=== PATIENT | female | born 1955 | race Caucasian/White ===

== ENCOUNTER 2017-05-12 08:51 | Day surgery (SDC) | payer MEDICARE, MEDICAID ==
[2017-05-09 14:48] VITALS: BMI 38.7
--- NOTE | 2017-05-11 23:53 | HP ---
HISTORY OF PRESENT ILLNESS: Ms. Sanchez is a 61-year-old woman who is known to us for a lumbar fusio n roughly two years ago who presents now for symptoms in her right hand that appeared carpal tunnel s yndrome in nature. She complains of pain, numbness and some weakness and clumsiness of the right mcmahan d. She is actually discussed this with Dr. Crockett in the past, but now has reached to a point where s he would like to pursue surgical treatment if possible. PAST MEDICAL HISTORY: Significant for back pain, neck pain, anemia, asthma, thyroid disease, diabete s, gastroesophageal reflux disease, and IBS. ALLERGIES: CIPRO, KEFLEX, BACTRIM, HYDROCODONE and MUCINEX. PAST SURGICAL HISTORY: Cholecystectomy, ACDF, lumbar fusion. CURRENT MEDICATIONS: Levothyroxine, oxybutynin, pravastatin, metformin, methocarbamol, Meloxicam, om eprazole. PHYSICAL EXAMINATION: NEUROLOGIC: The patient is alert and oriented x3. Positive Tinel's at the median nerve on the right hand. She has some sensory disturbance in the first, second, and third digits of the right hand and there are some clumsiness with fine motor movement. ASSESSMENT: Carpal tunnel syndrome of the right hand. PLAN: Dr. Crockett met with the patient, reviewed imaging and advocated for right carpal tunnel release . He explained to the patient the risks, benefits, and alternatives of the procedure. The patient e xpressed understanding and would like to move forward with surgery as discussed. I do believe the pa coy is mentally competent and capable of making medical decisions for herself and we will move forw molly with the surgery as planned.
[2017-05-12] MEDS ORDERED: Clindamycin/D5W 900 mg/50 ml Premix Bag ONE (11:27)
[2017-05-12] MEDS ORDERED: Lidocaine 1% w/Epinephrine 1:200K 30 ML VIAL ONE (11:50)
[2017-05-12] MEDS ORDERED: HYDROmorphone 0.5 MG/0.5 ML SYRINGE ONE (12:00)
[2017-05-12] MEDS ORDERED: Fentanyl 250 MCG/5 ML VIAL ONE (12:00)
[2017-05-12] MEDS ORDERED: Propofol 200 MG/20 ML VIAL ONE (16:58)
[2017-05-12] MEDS ORDERED: Lidocaine 1% PF 5 ML VIAL ONE (16:58)
--- NOTE | 2017-05-13 14:46 | OP ---
DATE OF PROCEDURE: 05/12/2017 SURGEON: Juan Crockett M.D. MANAGER POST: Tyson Chaes PA-C INDICATION: Pain. DIAGNOSIS: Carpal tunnel syndrome. PROCEDURE: Right carpal tunnel release. ANESTHESIA: Local and TIVA. PROCEDURE IN DETAIL: The patient was brought into the operating room and placed under general anesth esia. She was placed on the table in a supine position. Her arm was extended perpendicular to her b [place] and prepped and draped up to the level of the elbow. A linear incision was planned across the wr ist in line with long axis of the fourth digit. This was infiltrated with lidocaine. An incision wa s then performed. The carpal tunnel ligament was identified and incised. The incision was extended in both proximal and distal directions until the median nerve was decompressed. The wound was irriga paco. Hemostasis was maintained throughout. The wound was then closed in a single layer technique. The procedure came to an end without complication.
== END 2017-05-12 15:16 | disposition home or self-care (01) ==
LOC: SDC 08:51
PROVIDERS: ATTEND Neurological Surgery
PROC: 01N50ZZ Release Median Nerve, Open Approach (ICD-10-PCS; principal; 2017-05-12)
DX: G56.01 Carpal tunnel syndrome, right upper limb (principal); J45.909 Unspecified asthma, uncomplicated; D64.9 Anemia, unspecified; E11.9 Type 2 diabetes mellitus without complications; K21.9 Gastro-esophageal reflux disease without esophagitis; K58.9 Irritable bowel syndrome, unspecified; E78.5 Hyperlipidemia, unspecified; E03.9 Hypothyroidism, unspecified; N39.3 Stress incontinence (female) (male); Z79.84 Long term (current) use of oral hypoglycemic drugs; Z79.1 Long term (current) use of non-steroidal anti-inflammatories (NSAID); Z79.899 Other long term (current) drug therapy; Z88.1 Allergy status to other antibiotic agents; Z88.5 Allergy status to narcotic agent; Z88.8 Allergy status to other drugs, medicaments and biological substances; Z88.2 Allergy status to sulfonamides; Z88.0 Allergy status to penicillin; Z91.018 Allergy to other foods; Z91.048 Other nonmedicinal substance allergy status; Z98.1 Arthrodesis status
CPT/HCPCS: J1170; J2001; J2704; J3010; J3490